=== PATIENT | female | born 1940 | race Caucasian/White ===

== ENCOUNTER 2017-10-03 10:12 | Emergency (ER) | payer MEDICARE, MEDICAID ==
[~2017-10-03] VITALS: Ht 152.4 cm; Wt 59.0 kg
[~2017-10-03 10:12] MED LIST: ACEPHEN650 M1 RC; ACETAMINOPHEN325 M1 PO; ADVAIR HFA 1112 UNIT INH; ALEVE220 MG; ALLOPURINOL 30300 M2 PO; AMBIEN 10 MG TA10 MG PO; AMOXICILLIN 50500 M1 PO; ANTI-DIARRHEAL2 MG PO; ARTHROTEC 50 E1 EACH PO; ASPIRIN EC325 M1 PO; ASPIRIN81 M2 PO; ATIVAN0.5 MG PO; ATIVAN1 MG PO; AUGMENTIN 875875 M1 PO; AVELOX400 MG PO; B-100 COMPLEX1 EAC1 PO; BACTRIM DS TAB1 EACH PO; BENADRYL25 MG PO; BISACODYL SUPP10 MG RECTAL; CEFTIN500 MG PO; CELEXA40 MG PO; CEPHALEXIN 500500 M2 PO; CHANTIX1 MG; CHANTIX1 MG PO; CIPROFLOXACIN500 M1 PO; CLEOCIN HCL300 MG PO; COLACE100 MG PO; COMPAZINE10 M1 PO; COMPAZINE10 MG PO; COUMADIN 3 MG TA3 MG PO; COUMADIN 5 MG TA5 M1 PO; CRESTOR10 MG; CRESTOR10 MG PO; CYMBALTA PO; DETROL LA2 MG PO; DOXYCYCLINE 10100 MG PO; DUONEB 2.5-0.5 M3 ML; DUONEB 2.5-0.5 M3 ML INH; ENDOCET 10-3251 EACH PO; ERYTHROMYCIN250 M1 PO; FENTANYL PA50 MCG/HR TRANSDERM; FLONASE 0.05%50 MCG NASAL; FLUZONE 2045 MCG/011; FUROSEMIDE 20 M20 M1 PO; HALOPERIDOL2 MG/1 ML PO; HYDROCODON-ACE1 EAC7; IBUPROFEN 200200 M1 PO; IBUPROFEN 400400 M2 PO; IMDUR 30 MG TAB30 M1 PO; KRILL OIL500 MG; LASIX 20 MG TAB20 MG PO; LEVAQUIN 500 M500 M2 PO; LEVOFLOXACIN250 MG PO; LIDODERM 5%1 PATC1 TOP; LIDODERM 5%1 PATC1 TRANSDERM; LISINOPRIL5 MG PO; LORAZEPAM I2 MG/1 ML SUBLING; LOTRIMIN AF10 ML TP; LOTRISONE CREAM15 GM TP; LOZENGES1 EACH MM; MAGNESIUM OXID200 MG PO; MEPHYTON 5 MG TA5 M1 PO; METOCLOPRAMIDE 55 M1 PO; MILK OF MA400 MG/5 M PO; MIRALAX17 GM PO; MIRALAX255 GM PO; MORPHINE SULFAT15 M3 PO; MORPHINE SULFAT15 M5 PO; MS CONTIN15 MG PO; MSL20MG/ML PO; MSL20MG/ML SUBLING; MUCINEX TA600 MG/TA1 PO; NABUMETONE 750750 M1 PO; NASAL SPRAY30 ML; NEURONTIN 300300 M1 PO; NITROSTAT0.4 MG SL; ONDANSETRON ODT4 MG PO; OPANA ER10 M1 PO; OXYCODON-ACETA1 EAC1; PERCOCET 10-321 EACH PO; PNEUMOVAX25 MCG/0.5; PREDNISONE; PREDNISONE 10 M10 M1 PO; PREDNISONE 10 M10 MG PO; PREDNISONE 20 M20 M1 PO; PREDNISONE 20 M20 MG PO; PREDNISONE PO; PREDNISONE50 MG PO; PRINIVIL5 MG PO; PROAIR HFA8.5 GM IH; PROAIR HFA8.5 GM INH; PROTONIX40 M1 PO; PROTONIX40 M2 PO; REMERON15 MG PO; ROBITUSSIN DM118 ML PO; ROXICODONE15 M1 PO; SENNA PLUS TAB1 EACH PO; SIMVASTATIN40 MG PO; SINGULAIR 10 MG10 M1 PO; SODIUM BICARBO650 M3 PO; SPIRIVA INH; SYMBICORT; SYMBICORT160 MCG/4. INH; THERAGRAN-M PR1 EAC1 PO; THIAMINE HCL100 MG PO; TIZANIDINE HCL4 MG PO; TOPROL XL25 MG PO; TUMS PO; VASOLEX OINTMENT5 GM TOP; VICODIN 5-3001 EACH PO; VITAMIN D35000 UNI1 PO; ZANAFLEX4 M1 PO; ZANTAC 150MG T150 MG PO; ZOFRAN ODT4 MG PO; ZOFRAN4 MG PO; ZOLOFT 50 MG TA50 M1 PO; ZPAK PO; [UNRECOGNIZED DRUG - OTHER]; [UNRECOGNIZED DRUG - REMARK]; [UNRECOGNIZED DRUG - REMARK]
[2017-10-03] MEDS ORDERED: SEROQUEL 50 MG50 MG PO (10:36)
[2017-10-03] MEDS ORDERED: NORCO 5-325 TA1 EACH PO (10:38)
[2017-10-03 10:40] LABS: ABSOLUTE EOSINOPHILS 0.2 thou/uL (0.0-0.7); ABSOLUTE MONOCYTES 0.3 thou/uL (0.0-1.2); ABSOLUTE NEUTROPHILS 4.6 thou/uL (1.6-8.1); BASOPHILS 0.8 %; EOSINOPHILS 3.6 %; HEMATOCRIT 42.7 % (37.0-47.0); HEMOGLOBIN 13.7 gm/dL (12.0-15.0); LYMPHOCYTES 16.6 %; MCH 28.6 pg (26.0-34.0); MCHC 32.1 g/dL (28.0-37.0); MCV 89.3 fL (80.0-100.0); MONOCYTES 5.5 %; MPV 8.6 fl. (7.2-11.1); NUCLEATED RBCS 0 /100WBC; PLATELET COUNT* 194 thou/uL (150-400); POLYS 73.5 %; RBC 4.78 mil/uL (4.20-5.00); RDW-CV 15.8 % (10.5-14.5); WBC 6.3 thou/uL (4.0-11.0)
[2017-10-03] MEDS ORDERED: NYAMYC15 GM TOP (10:40)
[2017-10-03] MEDS ORDERED: MILK OF MA2400 MG/10 PO (10:41)
[2017-10-03] MEDS ORDERED: ZOFRAN ODT4 MG DISSOLVE (10:42)
[2017-10-03 10:46] LABS: ANION GAP 2 mmol/L (7-16); BUN 15 mg/dL (7-18); CALCIUM 8.7 mg/dL (8.5-10.1); CHLORIDE 98 mmol/L (98-107); CO2 34 mmol/L (21-32); CREATININE 1.1 mg/dL (0.6-1.3); GLUCOSE 92 mg/dL (70-99); POTASSIUM 4.7 mmol/L (3.5-5.1); SODIUM 134 mmol/L (136-145)
[2017-10-03 10:52] LABS: ALBUMIN 3.4 g/dL (3.4-5.0); ALKALINE PHOSPHATASE 130 U/L (46-116); LIPASE 146 U/L (73-393); SGOT 19 U/L (15-37); SGPT 12 U/L (30-65); TOTAL BILIRUBIN 0.6 mg/dL (<0.1-1.0); TOTAL PROTEIN 7.4 g/dL (6.4-8.2); TROPONIN-I LEVEL <0.06 ng/mL (<0.06)
[2017-10-03 12:24] LABS: URINE BILIRUBIN NEGATIVE (Negative); URINE BLOOD TRACE (Negative); URINE CLARITY CLEAR; URINE COLOR YELLOW; URINE GLUCOSE-RANDOM NEGATIVE (Negative); URINE KETONES NEGATIVE (Negative); URINE LEUKOCYTES-REFLEX 1+ (Negative); URINE NITRITE-REFLEX NEGATIVE (Negative); URINE PROTEIN NEGATIVE (Negative); URINE SPECIFIC GRAVITY 1.015 (1.005-1.030); URINE UROBILINOGEN 0.2 E.U./dl (0.2-1.0)
[2017-10-03 12:33] LABS: BACTERIA-REFLEX 1-9 Few /HPF (None Seen); CASTS None Seen /LPF (None Seen); CRYSTALS None Seen /LPF (None Seen); MUCUS 0-3 Light strn/LPF (None Seen); SQUAMOUS 0-3 Few /LPF (0-3); URINE RBC 0-2 Rare /HPF (0-2); URINE WBC-REFLEX 0-5 Rare /HPF (0-5)
[2017-10-03] MEDS ORDERED: BACTRIM DS TAB1 EACH PO (12:38)
[2017-10-03 13:06] VITALS: BP 125/58
--- NOTE | 2017-10-03 15:11 | EKG ---
[place] [address] ELECTROCARDIOGRAM REPORT Name: NILSA DIAZ Room: [facility]#: [id number] Admission: 10/03/17 Attend Phys: Discharge: 10/03/17 Date of : 38 Report #: [id number] THIS REPORT FOR: //name// [facility] ED Test Date: 2017-10-03 Test Time: 10:49:05 Pat Name: NILSA DIAZ Department: Room: Gender: F Fashion Consultant Selling: BECCA : 1940 Requested By: Alejandro Tony Order Number: [id number] MD: Konstantin Adams Measurements Intervals [place] Rate: 100 P: 71 AL: 135 QRS: 47 QRSD: 117 T: 45 QT: 356 QTc: 460 Interpretive Statements Sinus tachycardia Incomplete right bundle branch block Probable inferior infarct, old Compared to ECG 02/27/2014 16:31:52 Incomplete right bundle-branch block now present Myocardial infarct finding still present Electronically Signed On 10-03-2017 15:11:23 CDT by Konstantin Adams [email or web address] <ELECTRONICALLY SIGNED> By: Konstantin Adams MD, [facility] 10/03/17 1511 1049 1049 Konstantin Adams MD, [facility] /EPI
== END 2017-10-03 13:54 | disposition home or self-care (01) ==
LOC: M.ERS 10:12
PROVIDERS: Emergency Medicine
DX: N39.0 Urinary tract infection, site not specified (principal); J44.9 Chronic obstructive pulmonary disease, unspecified; M19.90 Unspecified osteoarthritis, unspecified site; M35.3 Polymyalgia rheumatica; Z79.899 Other long term (current) drug therapy

== ENCOUNTER 2017-11-20 06:02 | Inpatient (IN) | payer MEDICARE, MEDICAID ==
[~2017-11-20] VITALS: Ht 152.4 cm; Wt 59.0 kg
[~2017-11-20 06:02] MED LIST changes: +MILK OF MA2400 MG/10 PO; +NORCO 5-325 TA1 EACH PO; +NYAMYC15 GM TOP; +SEROQUEL 50 MG50 MG PO; +ZOFRAN ODT4 MG DISSOLVE
[2017-11-20 06:03] VITALS: BP 116/59
[2017-11-20] MEDS ORDERED: SIVEXTRO200 M1 PO (06:25)
[2017-11-20 06:44] LABS: HEMATOCRIT 39.2 % (37.0-47.0); HEMOGLOBIN 12.6 gm/dL (12.0-15.0); MCH 29.6 pg (26.0-34.0); MCHC 32.1 g/dL (28.0-37.0); MCV 92.1 fL (80.0-100.0); MPV 8.6 fl. (7.2-11.1); NUCLEATED RBCS 0 /100WBC; PLATELET COUNT* 159 thou/uL (150-400); RBC 4.26 mil/uL (4.20-5.00); RDW-CV 16.1 % (10.5-14.5); WBC 6.1 thou/uL (4.0-11.0)
[2017-11-20 07:08] LABS: APTT 20.3 Seconds (25.0-31.3); PROTIME 10.5 Seconds (9.20-11.50)
[2017-11-20 07:45] LABS: ANION GAP 0 mmol/L (7-16); BUN 16 mg/dL (7-18); CALCIUM 8.8 mg/dL (8.5-10.1); CHLORIDE 101 mmol/L (98-107); CO2 38 mmol/L (21-32); CREATININE 0.8 mg/dL (0.6-1.3); GLUCOSE 92 mg/dL (70-99); POTASSIUM 4.8 mmol/L (3.5-5.1); SODIUM 139 mmol/L (136-145)
[2017-11-20 07:56] LABS: ALBUMIN 3.2 g/dL (3.4-5.0); ALKALINE PHOSPHATASE 109 U/L (46-116); LIPASE 135 U/L (73-393); NT-PRO BRAIN NAT PEPTIDE 1002 pg/mL (<300); SGOT 27 U/L (15-37); SGPT 18 U/L (30-65); TOTAL BILIRUBIN 0.5 mg/dL (<0.1-1.0); TOTAL PROTEIN 6.2 g/dL (6.4-8.2); TROPONIN-I LEVEL <0.06 ng/mL (<0.06)
[2017-11-20 08:22] LABS: ABSOLUTE BASOPHILS 0.1 thou/uL (0.0-0.2); ABSOLUTE EOSINOPHILS 0.7 thou/uL (0.0-0.7); ABSOLUTE LYMPHOCYTES 1.2 thou/uL (0.8-5.3); ABSOLUTE MONOCYTES 0.5 thou/uL (0.0-1.2); ABSOLUTE NEUTROPHILS 3.7 thou/uL (1.6-8.1); PLATELET ESTIMATE ADEQUATE
[2017-11-20 08:29] VITALS: BP 134/72
[2017-11-20 09:21] VITALS: BP 121/47
--- NOTE | 2017-11-20 15:03 | EKG ---
[place] [address] ELECTROCARDIOGRAM REPORT Name: NILSA DIAZ Room: [address] ADM IN M.R.#: [id number] Admission: 11/20/17 Attend Phys: Connie Martinez Discharge: Date of : 38 Report #: [id number] THIS REPORT FOR: //name// [facility] ED Test Date: 2017-11-20 Test Time: 06:29:20 Pat Name: NILSA DIAZ Department: Room: [facility] Gender: F Clinical Appeals Rn: GUS : 1940 Requested By: Tarun Ayala Order Number: [id number] MD: Avi No Measurements Intervals [place] Rate: 102 P: 62 MT: 133 QRS: 0 QRSD: 105 T: -10 QT: 359 QTc: 468 Interpretive Statements Sinus tachycardia RSR' in V1 or V2, right VCD or RVH Inferior infarct, age indeterminate, possible Compared to ECG 10/03/2017 10:49:05 Right ventricular hypertrophy now present RSR' in V1 or V2 now present Incomplete right bundle-branch block no longer present Myocardial infarct finding still present Electronically Signed On 11-20-2017 15:02:53 CDT by Avi No [email or web address] <ELECTRONICALLY SIGNED> By: Avi No MD, FACC 11/20/17 1502 8 8 Avi No MD, FACC /EPI
[2017-11-20 16:19] VITALS: BP 157/67
[2017-11-20 17:47] LABS: BE 8.6 mmol/L (-2 to +3); HCO3 30.6 mmol/L (22.0-26.0); PCO2 33.5 mmHg (35.0-45.0); PO2 60.6 mmHg (75.0-100.0); pH 7.578 (7.340-7.450)
[2017-11-20 21:30] VITALS: BP 143/67
[2017-11-21 10:30] VITALS: BP 141/72
[2017-11-21 21:00] VITALS: BP 124/64
[2017-11-22 07:45] VITALS: BP 115/69
[2017-11-22 14:11] VITALS: BP 115/69
[2017-11-22] MEDS ORDERED: KEFLEX500 M1 PO (15:48)
[2017-11-22] MEDS ORDERED: PREDNISONE 20 M20 MG PO (15:49)
[2017-11-22 16:15] VITALS: BP 115/69
== END 2017-11-22 16:00 | DRG 177 ==
LOC: M.ERS 06:02 → M.ORTHSURG 06:29 → M.TBA-ER 06:29 → M.ORTHSURG 08:24
PROVIDERS: Family Medicine; ADMIT Internal Medicine
DX: J69.0 Pneumonitis due to inhalation of food and vomit (principal); J96.21 Acute and chronic respiratory failure with hypoxia; J44.1 Chronic obstructive pulmonary disease with (acute) exacerbation; M19.90 Unspecified osteoarthritis, unspecified site; F31.9 Bipolar disorder, unspecified; J84.10 Pulmonary fibrosis, unspecified; F03.90 Unspecified dementia, unspecified severity, without behavioral disturbance, psychotic disturbance, mood disturbance, and anxiety; F17.210 Nicotine dependence, cigarettes, uncomplicated; Z96.652 Presence of left artificial knee joint; Z85.41 Personal history of malignant neoplasm of cervix uteri; Z90.49 Acquired absence of other specified parts of digestive tract; Z90.710 Acquired absence of both cervix and uterus; Z87.81 Personal history of (healed) traumatic fracture; Z79.899 Other long term (current) drug therapy